=== PATIENT | female | born 1965 | race Caucasian/White ===

== ENCOUNTER 2021-10-28 11:04 | Emergency (ER) | payer MEDICAID ==
[~2021-10-28] VITALS: Ht 165.1 cm; Wt 64.9 kg
[2021-10-28 11:11] VITALS: BP 161/75
--- NOTE | 2021-10-28 12:10 | NUR ---
-CALL ER LOBBY N/A 2-CALL 1215 N/A 3-CALL ER LOBBY 1210
--- NOTE | 2021-10-28 12:10 | NUR ---
PATIENT LEFT WITHOUT BEING SEEN BY . NO FURTHER CARE PROVIDED FOR PATIENT.
== END 2021-10-28 12:10 | disposition left against medical advice (07) ==
LOC: MED 11:04
DX: F10.230 Alcohol dependence with withdrawal, uncomplicated (principal); Z53.21 Procedure and treatment not carried out due to patient leaving prior to being seen by health care provider